=== PATIENT | female | born 1975 ===

== ENCOUNTER 2018-06-23 09:51 | Emergency (ER) | payer OTHER ==
[~2018-06-23] VITALS: Ht 170.2 cm; Wt 151.5 kg
[2018-06-23] MEDS ORDERED: HYZAAR 50-12.51 EACH (10:12)
[2018-06-23] MEDS ORDERED: METFORMIN PO (10:13)
[2018-06-23] MEDS ORDERED: PREVACID30 MG PO (10:13)
[2018-06-23] MEDS ORDERED: HUMALOG MI100 UNIT/2 (10:14)
== END 2018-06-23 13:48 | disposition home or self-care (01) ==
LOC: ER 09:51
DX: N21.1 Calculus in urethra (principal); R10.32 Left lower quadrant pain